=== PATIENT | male | born 1985 | race Caucasian/White ===

== ENCOUNTER 2018-12-06 08:12 | Day surgery (SDC) | payer OTHER ==
[2018-12-06] MEDS ORDERED: LIDOCAINE 2% (SDV) 5 ML INJ (09:41)
[2018-12-06] MEDS ORDERED: PROPOFOL 40 ML (09:41)
[2018-12-06] MEDS ORDERED: ONDANSETRON 4 MG INJ IV (10:00)
[2018-12-06 10:11] LABS: INR 1.23; PROTIME 15.6 Sec (11.9-14.9); PT RATIO 1.2
[2018-12-06 10:12] LABS: PARTIAL THROMBOPLASTIN TIME 36.8 Sec (23.0-35.0)
[2018-12-06] MEDS ORDERED: PROPOFOL 20 ML (10:44)
== END 2018-12-06 15:47 | disposition home or self-care (01) ==
LOC: GIL 08:12
DX: R19.5 Other fecal abnormalities (principal); K64.1 Second degree hemorrhoids
CPT/HCPCS: 45378; 85610; 85730